=== PATIENT | female | born 1940 | race Asian ===

== ENCOUNTER 2017-04-28 09:27 | Emergency (ER) | payer SELFPAY ==
[~2017-04-28] VITALS: Ht 162.6 cm; Wt 70.0 kg
[2017-04-28] MEDS ORDERED: TELM20 PO (09:30)
[2017-04-28] MEDS ORDERED: METHI5 PO (09:30)
[2017-04-28] MEDS ORDERED: METF500T4 PO (09:30)
[2017-04-28] MEDS ORDERED: HYDROCODONE/ACETAMINOPHEN 5-325 MG TABLET PO ONE (11:15)
[2017-04-28] MEDS ORDERED: PERTUSS(ACELL),DIPH,TET VAC/PF 0.5 ML VIAL IM ONE (11:15)
[2017-04-28] MEDS ORDERED: BACITRACIN 0.9 GM PACKET OINTMENT TP ONE (11:15)
[2017-04-28 12:33] VITALS: BP 154/87
== END 2017-04-28 12:40 | disposition home or self-care (01) ==
LOC: EMS 09:29
DX: S00.83XA Contusion of other part of head, initial encounter (principal); S00.03XA Contusion of scalp, initial encounter; S80.211A Abrasion, right knee, initial encounter; S80.212A Abrasion, left knee, initial encounter; L08.9 Local infection of the skin and subcutaneous tissue, unspecified; E11.9 Type 2 diabetes mellitus without complications; I10 Essential (primary) hypertension; E03.9 Hypothyroidism, unspecified; W18.39XA Other fall on same level, initial encounter; Y93.89 Activity, other specified; Y92.89 Other specified places as the place of occurrence of the external cause; Y99.8 Other external cause status
CPT/HCPCS: 70450; 90471; 90715; 99284